=== PATIENT | female | born 1950 | race African-American/Black ===

== ENCOUNTER 2019-05-24 05:10 | Day surgery (SDC) ==
[2019-05-24] MEDS ORDERED: KEFZOL 1 GM/D5W 1 GM/50 ML IVPB ONE (05:46)
[2019-05-24] MEDS ORDERED: LR 1,000 ML ONE (05:46)
[2019-05-24] MEDS ORDERED: XYLOCAINE 1%/EPI 1:100,000 ONE (06:31)
[2019-05-24] MEDS ORDERED: DIPRIVAN 1% ONE (06:37)
[2019-05-24] MEDS ORDERED: FENTANYL ONE (07:08)
[2019-05-24] MEDS ORDERED: ZOFRAN ONE (07:31)
[2019-05-24] MEDS ORDERED: DECADRON ONE (07:31)
[2019-05-24] MEDS ORDERED: ZEMURON ONE (07:31)
[2019-05-24] MEDS ORDERED: LUBRIFRESH PM OPH OINTMENT ONE (07:31)
[2019-05-24] MEDS ORDERED: XYLOCAINE-MPF 2% ONE (07:31)
[2019-05-24] MEDS ORDERED: QUELICIN (DOSE) ONE (07:31)
[2019-05-24] MEDS ORDERED: MORPHINE IV PRN (10:03)
[2019-05-24] MEDS ORDERED: PHENERGAN IV PRN (10:04)
[2019-05-24] MEDS ORDERED: MOTRIN PO PRN (10:05)
[2019-05-24] MEDS ORDERED: SODIUM CHLORIDE 0.9% INJ PRN (10:15)
[2019-05-24] MEDS: NORCO-7.5 PO PRN (15:32)
--- NOTE | 2019-05-24 20:00 | OPERATIVE NOTE ---
PROCEDURE DATE: 05/24/2019 PREOPERATIVE DIAGNOSIS: Multinodular thyroid goiter. POSTOPERATIVE DIAGNOSIS: Multinodular thyroid goiter. PRINCIPAL PROCEDURES: Total thyroidectomy. SURGEON: Giuliana Hillman MD. LOCAL SALES ASSOCIATE: Dr. Mj Ziegler. ANESTHESIA: General in addition to local anesthetic. ESTIMATED BLOOD LOSS: 50 mL. DRAINS: TLS drain, anterior neck. INDICATIONS: Yanna Mujica is a 69-year-old black female who on exam had a diffusely enlarged thyroid gland. By ultrasound evaluation she had a multinodular goiter right side larger than the left. It was symptomatic and noticeable and total thyroidectomy was recommended. FINDINGS: She had a diffusely enlarged multinodular thyroid gland right lobe greater than left. We performed a total thyroidectomy. We felt we visualized the recurrent laryngeal nerves on both sides and preserved them along their length. We also felt we preserved the parathyroid tissue on both sides. DESCRIPTION OF PROCEDURE: The patient was brought to the operating room, placed supine, received general anesthesia. I placed some folded sheets underneath her shoulders to extend her neck. She was placed in reverse Trendelenburg and her anterior neck was prepped and draped in a sterile field. She received Ancef prophylactically. I made an 8 cm curvilinear incision anterior neck centered at the trachea. A 15 blade scalpel was used to make the incision. It was carried down through the skin and subcutaneous tissue to the platysma muscle which was incised and we created a subplatysmal plane superiorly and inferiorly using mostly cautery and straight Janiya clamps. We then used a Gelpi for self-retaining retraction and I also used handheld retractors for exposure. We started on the right side because that was the largest lobe. We incised the fascia of the neck in the midline between our strap muscles using forceps and the cautery. We identified the middle thyroid and then dissected the strap muscles off the right thyroid lobe using cautery and blunt finger dissection. We mobilized the right lobe up into our wound anteriorly. We did use the small ligature a lot for this dissection. We came across the superior pole after we isolated it with a hemostat and a right angle with the LigaSure and that allowed us to bring the right thyroid lobe up even more into the wound. We used [employer]'s for retraction laterally, the Gelpi for retraction in the middle and Dr. Ziegler and I dissected the right lobe. We stayed close to the thyroid gland to preserve parathyroid tissue and the recurrent laryngeal nerve. We identified the recurrent laryngeal nerve and preserved it throughout the case. We did come across the middle thyroid vessels right at the thyroid gland again with the ligature. The inferior thyroid vessels again were divided using the LigaSure. We also used a cotton pusher for dissection and we brought the thyroid tissue off the anterior trachea. We then divided the isthmus with the LigaSure and removed the right thyroid lobe from the operative field. This allowed us to mobilize the left thyroid gland more easily. We proceeded with dissection of the left thyroid lobe because we were comfortable about the right recurrent laryngeal nerve being preserved and the parathyroid tissue on the right being preserved. Again, we removed the strap muscles off the left thyroid gland. Again with blunt finger dissection we pulled the left thyroid lobe up into our wound. Again, we isolated the superior pole vessels and using the LigaSure divided them. Again, we divided the middle thyroid vessels right at the thyroid with the LigaSure and the inferior thyroid vessels again right at the thyroid using the LigaSure. Again, we identified the left recurrent laryngeal nerve and preserved it along its length and we felt we preserved at least the superior parathyroid gland on the left, but probably both parathyroid glands. We mobilized the remainder of the left thyroid lobe off the anterior trachea. We also removed a pyramidal lobe and she also had a nodule extending below the sternum that we removed all with the left thyroid lobe. The left lobe was removed from the field and sent to the pathologist for permanent section as was the right thyroid lobe. Any bleeding was controlled using cautery if it was not near the nerve. We thoroughly irrigated the wound and we placed a TLS drain anterior neck. It was brought out through the lateral aspect of our incision. I closed the strap muscles at the midline with 3-0 Popoff Vicryl stitches. I closed the platysma with 3-0 popoff Vicryl stitches and then I closed the skin with 4-0 Monocryl subcuticular stitch. Steri-Strips were applied followed by dry dressing. Plans are for her to go the recovery room and be hospitalized overnight. It must be noted that Dr. Mj Ziegler was present throughout the case. His presence was necessary for help with exposure and dissection of both thyroid lobes. cc: Giuliana Hillman MD
[2019-05-24] MEDS: PERIDEX MT SCH (22:44)
[2019-05-25] MEDS: NORCO-7.5 PO PRN (07:58)
[2019-05-25 08:05] VITALS: BP 119/65
[2019-05-25] MEDS: PERIDEX MT SCH (09:21)
--- NOTE | 2019-05-25 20:27 | GENERAL SURGERY PROGRESS NOTE ---
DATE: 05/25/2019 SUBJECTIVE: Doing well. No difficulty swallowing. No difficulties breathing. JEFFERY drain is serosanguineous. No fevers. No tachycardia. She has no tingling. Her incision intact. JEFFERY drain serosanguineous. There is no swelling. Minimal bruising. ASSESSMENT AND PLAN: This is a 69-year-old female status post total thyroidectomy. She is doing well. I removed her drain. I applied a dressing. I have given her written instructions. She will call with any tingling. I have given a prescription for Synthroid 125, [place] 7.5. See Dr. Hillman later this week. cc: MD Giuliana Sexton MD
== END 2019-05-25 12:06 | disposition home or self-care (01) ==
LOC: SURHOLD 05:10 → PAT 05:10 → 4N 09:58 → PAT 05-25 12:06
PROVIDERS: ATTEND Surgery
PROC: GE.THYR (2019-05-24 06:57)
CPT/HCPCS: 88307; 88313; 94761; 94799; A9270; J0330; J0690; J1100; J2405; J3010; J7120